=== PATIENT | female | born 1955 | race African-American/Black ===

== ENCOUNTER 2019-09-23 13:49 | Emergency (ER) | payer MEDICAID ==
[~2019-09-23] VITALS: Ht 165.1 cm; Wt 124.0 kg
[2019-09-23 13:58] VITALS: BP 150/78
[2019-09-23] MEDS ORDERED: IBUPROFEN 600MG TABLET PO ONE (15:00)
[2019-09-23] MEDS ORDERED: ACETAMINOPHEN WITH CODEINE 300/30MG TABLET PO ONE (15:00)
== END 2019-09-23 16:31 | disposition home or self-care (01) ==
LOC: ER 13:49
DX: R10.30 Lower abdominal pain, unspecified (principal); M70.90 Unspecified soft tissue disorder related to use, overuse and pressure of unspecified site; J44.9 Chronic obstructive pulmonary disease, unspecified; E11.9 Type 2 diabetes mellitus without complications; I10 Essential (primary) hypertension; K21.9 Gastro-esophageal reflux disease without esophagitis
CPT/HCPCS: 72170; 99283